=== PATIENT | female | born 1980 | race Caucasian/White ===

== ENCOUNTER 2017-09-22 14:43 | Emergency (ER) | payer OTHER ==
[~2017-09-22] VITALS: Ht 154.9 cm; Wt 74.0 kg
[2017-09-22 14:57] VITALS: TEMP 37; Ht 154.9 cm; Wt 74.0 kg
[2017-09-22] MEDS ORDERED: ACETAMINOPHEN 500 MG TAB PO STA (15:11)
[2017-09-22] MEDS ORDERED: LIDOCAINE/EPINEPH/TETRACAINE 1 EA SYR EXT STA (15:11)
[2017-09-22] MEDS ORDERED: DIPHTHERIA/TETANUS/PERTUSSIS 0.5 ML SYR/VIAL IM. ONE (15:15)
--- NOTE | 2017-09-22 15:30 | EMERGENCY ROOM VISIT NOTE ---
ED Visit Note First contact with patient: 15:00 CHIEF COMPLAINT: Head injury with laceration HISTORY OF PRESENTING ILLNESS: This is a 37-year-old female who presents the emergency department complaint of head injury and facial laceration. Patient reports that she was roller skating, she tripped and fell head first, injuring her right hand/wrist and hitting her head on the floor at approximately 2:30 PM today. She denies loss of consciousness, but does have a mild headache. She states that there is a laceration above her right eyebrow that is painful, she describes pain as constant, sharp and throbbing, 6/10. She does not take any medications prior to arrival. She denies any vision changes, nausea or vomiting , neck pain, back pain, chest pain, abdominal pain shortness of breath, dizziness or syncope, or any other associated injuries. She is right-hand dominant. She is unsure of her last tetanus, but thinks it may have been more than 10 years. She does take a baby aspirin daily, no other blood thinners. REVIEW OF SYSTEMS: A complete 10 point review of systems was reviewed with the patient with pertinent positives and negatives as per history of present illness. All else were negative. PAST MEDICAL HISTORY: Depression/anxiety, asthma, GERD SOCIAL HISTORY: Lives at home. She denies tobacco, alcohol, recreational drug use. ALLERGIES: Reviewed in chart. PHYSICAL EXAM: CONSTITUTIONAL: Pleasant and cooperative. No acute distress. Well appearing and well nourished. HEENT: Normocephalic. There is a 3 cm laceration on the right lateral forehead adjacent to the lateral eye and eyebrow, full-thickness. Minimal bleeding noted. PERRL, EOMI, though she does note some pain with lateral movement of the right eye. No nystagmus. TMs normal with no hemotympanum. Pharynx normal. Moist mucous membranes. NECK: Supple, full active range of motion without discomfort. No midline tenderness of the cervical spine. No cervical adenopathy. RESPIRATORY: Clear to auscultation bilaterally with no wheezing, crackles, rhonchi or stridor. Equal expansion bilaterally. CARDIOVASCULAR: Regular rate and rhythm with no murmurs, rubs or gallops. Normal peripheral perfusion. No edema. GASTROINTESTINAL: Soft, nontender, nondistended. No palpable masses or HSM. Bowel sounds present in all quadrants. MUSCULOSKELETAL: Tenderness to palpation of the right dorsal medial wrist and fifth metacarpal, no swelling. Extension and flexion of the wrist intact against resistance. Able to give a thumbs up, okay sign, and approximate all fingers to thumb without difficulty. Sensation intact distally. Brisk cap refill.. Full range of motion of all other joints without discomfort. INTEGUMENTARY: No rash or other significant dermatologic conditions noted. NEUROLOGIC: Alert and oriented X 4 with normal affect. Cranial nerves II-XII grossly intact, no facial droop. No pronator drift. No focal neurologic deficits noted. Normal strength and sensation in all 4 extremities. Normal speech. Normal gait observed. Ylsfym-djld-[id number] testing normal bilaterally. Negative Romberg. ED COURSE AND MEDICAL DECISION MAKING: CC: Patient presenting with complaint of head injury, facial laceration DIFFERENTIAL DIAGNOSIS: Includes, but not limited to laceration, contusion, hematoma, abrasion, concussion, orbital wall fracture, skull fracture, intracranial hemorrhage, hand/wrist sprain, fracture, contusion, among others. IMAGING: R HAND MIN 3 VIEWS ROUTINE, R WRIST MIN 3 VIEWS ROUTINE CLINICAL HISTORY: 37 years-old Female presenting with fall onto hand/wrist, eval fx. TECHNIQUE: Frontal, oblique, and lateral views of the right hand as well as frontal, bilateral oblique, and lateral views of the right wrist were obtained. COMPARISON: None. FINDINGS: Right hand: No acute fracture or malalignment. No advanced degenerative change. No radiographic soft tissue abnormality. Right wrist: No acute fracture or malalignment. No advanced degenerative change. No radiographic soft tissue abnormality. IMPRESSION: No acute osseous injury of the right hand or wrist. ----- HEAD WITHOUT CONTRAST (CT) CLINICAL HISTORY: 37 years-old Female presenting with fall, hit head, right eyebrow lac, eval trauma. TECHNIQUE: Multidetector CT imaging of the head was performed without the use of intravenous contrast. Acute appearing as is the sphenoid sinus filling defect in the glenohumeral IV contrast: None. A dose lowering technique was used consistent with the principles of ALARA (as low as reasonably achievable). COMPARISON: None. CT DOSE (mGy.cm): The estimated cumulative dose is 734.10. FINDINGS: Engineering Illustrator topogram: Unremarkable. Ventricles and sulci normal in size. Brain parenchyma normal in appearance with preserved chandra-white differentiation. No mass effect or midline shift. No hemorrhage or acute territorial infarct. No extra-axial fluid collection. Paranasal sinuses and mastoid air cells clear. Calvarium intact. IMPRESSION: 1. No acute intracranial abnormality. ----- FACIAL BONES-MXILLOFAC WITHOUT CLINICAL HISTORY: 37 years-old Female presenting with fall, hit head, right eyebrow lac, eval trauma, orbital fx. TECHNIQUE: Multidetector CT of the face was performed without the use of intravenous contrast. IV contrast: None. A dose lowering technique was used consistent with the principles of ALARA (as low as reasonably achievable). COMPARISON: None. CT DOSE (mGy.cm): The estimated cumulative dose is 734.10 mGy.cm. FINDINGS: Engineering Illustrator topogram: Unremarkable. Paranasal sinuses and mastoid air cells clear. No acute fracture. Temporal mandibular joints and mandible intact. Absence of the right mandibular second molar and several additional teeth. Bony nasal septum midline. No nasal bone fracture. Orbits normal. Evaluation of the superficial soft tissues of the face demonstrates minimal infiltration along the lateral aspect of the right periorbital soft tissues consistent with the given history. Upper cervical spine normal. IMPRESSION: No acute osseous injury of the face. Minimal infiltration of the lateral right periorbital soft tissue consistent with contusion. MEDICATION RECONCILIATION: I attest that I have personally reviewed the patient 's current medication list. INITIAL VITAL SIGNS REVIEW: I reviewed the patient's initial vital signs and interpret them as follows: T: Afebrile; BP: Hypertensive; HR: Within normal limits; RR: Within normal limits; Pulse Ox: Within normal limits on room air. Blood pressure screening: The patient was found to have an elevated blood pressure[],which was felt to be situational []and was referred to their primary doctor for recheck and further treatment. PROCEDURE NOTE: Laceration Repair Verbal consent was obtained from the patient. After achieving appropriate anesthesia with LET gel, the laceration site was cleansed with Betadine and saline. The wound was further explored and noted to have a laceration extending through the periosteum with exposed skull. This was closed with 2 single interrupted 6-0 Vicryl sutures. The remainder of the laceration was then closed with subcuticular sutures of 6-0 Vicryl, with good approximation of the wound edges. The wound was then closed with 3 layers of Dermabond. Good wound closure and approximation achieved, bleeding controlled. Patient tolerated the procedure well. Neurovascularly intact postprocedure. Occlusive dressing placed. SUMMARY: Patient was evaluated at bedside, history and physical exam performed. Patient is alert and oriented, in no acute distress, resting, and stretcher. Neurologic exam is intact with no focal deficits. Extraocular movements are intact, but the patient complains of some mild pain with lateral movement of the right eye. Laceration noted as above, minimal bleeding. Tender to palpation, no bony crepitus or depression to suggest a skull fracture. LET gel applied to the wound for anesthesia. Orders were placed at bedside for tetanus shot, Tylenol for headache, x-ray of right hand and wrist, CT head and facial bones to evaluate for trauma. Patient discussed with Dr. Steve, who agrees with my assessment and plan. Imaging reviewed as above, no acute traumatic injuries noted. Laceration repair as per procedure note above. Patient reassessed multiple times throughout ED stay, she reports that her headache is improved after the Tylenol. Patient was placed in a wrist lacer splint for possible wrist sprain, and encouraged to follow-up with her PCP or orthopedic surgery of her symptoms do not improve. Patient was updated on all results and plan for discharge, she was encouraged to follow closely with her PCP. Patient was educated regarding wound care and was also given strict return precautions should her symptoms worsen, she verbalized understanding. Patient was discharged home in stable condition and ambulatory. Current/Historical Medications Scheduled Aspirin (Aspirin Ec), 81 MG PO DAILY Buspirone Hcl (Buspirone Hcl), 15 MG BID Cephalexin Monohydrate (Keflex), 500 MG PO TID Cholecalciferol (Vitamin D), 2 TABS PO DAILY Cyanocobalamin (Vitamin B-12), 1,000 MCG PO DAILY Lamotrigine (Lamictal), 200 MG PO HS Magnesium Oxide (Mag-Ox), 400 MG PO HS Melatonin-Pyridoxine (Melatonin), 10 MG PO HS Omeprazole (Prilosec), 20 MG PO DAILY Polyethylene Glycol 3350 (Miralax), 17 GM PO BID Pregabalin (Lyrica), 150 MG PO BID Riboflavin (Vitamin B-2), 100 MG PO DAILY Saline (Saline Nasal [place]), 2 SPRAYS NA BID UD Topiramate (Topamax), 100 MG PO HS Topiramate (Topamax), 50 MG PO BID Triamcinolone Acetonide (Nasal (Nasacort Allergy 24Hr), 1 SPRAY DONALD BID Venlafaxine Hcl (Venlafaxine Hcl Er), 75 MG PO DAILYBB Venlafaxine Hcl (Venlafaxine Hcl Er), 1 TAB PO DAILY [Cardizem Ointment], 1 APPLN RE TID Scheduled PRN Albuterol Sulfate (Proventil Hfa), 2 PUFF INH Q4 PRN for SOB/Wheezing Dicyclomine Hcl (Bentyl), 10-20 MG PO Q6 PRN for Pain Ibuprofen (Motrin), 800 MG PO TID PRN for Pain Magnesium Citrate (Magnesium Citrate), 120 ML PO DAILY PRN for SEVERE CONSTIPATION Oxycodone/Acetaminophen 7.5MG/325MG (Percocet 7.5MG/325MG), 1 TAB PO Q8 PRN for Pain Tizanidine (Zanaflex), 4-8 MG PO HS PRN for Muscle Spasms Allergies Coded Allergies: Azithromycin (Verified Adverse Reaction, Severe, ABD PAIN, 09/22/17) Gabapentin (Verified Adverse Reaction, Severe, DISORIENTED, 09/22/17) Vital Signs Date Time Temp Pulse Resp B/P (MAP) Pulse Ox O2 Delivery O2 Flow Rate FiO2 09/22/17 17:45 87 18 130/87 98 Room Air 09/22/17 14:57 37.0 98 18 141/93 96 Room Air Medications Administered Medications (Trade) Dose Ordered Sig/Brittany Route Start Time Stop Time Status Last Admin Dose Admin Tetracaine/ Epinephrine/ Lidocaine (L.e.t. Gel 4%/ 1:100/0.5%) 1 ea UD STAT EXT 09/22/17 15:11 09/22/17 15:16 DC 09/22/17 15:38 1 EA Diphtheria/ Pertussis/Tetanus Vacc (Adacel Inj) 0.5 ml ONCE ONCE IM. 09/22/17 15:15 09/22/17 15:16 DC 09/22/17 15:39 0.5 ML Acetaminophen (Tylenol Tab) 1,000 mg NOW STAT PO 09/22/17 15:11 09/22/17 15:16 DC 09/22/17 15:38 1,000 MG Cephalexin Monohydrate (Keflex Cap) 500 mg NOW ONCE PO 09/22/17 17:45 09/22/17 17:46 DC 09/22/17 17:43 500 MG Cephalexin Monohydrate (Keflex 500MG Home Pack) 1 homepack NOW ONCE PO 09/22/17 17:45 09/22/17 17:46 DC 09/22/17 17:43 1 HOMEPACK Departure Information Impression Primary Impression: Closed head injury Additional Impressions: Laceration of eyebrow with complication Right wrist sprain Dispostion Home / Self-Care Condition GOOD Prescriptions Cephalexin Monohydrate (Keflex) 500 Mg Cap 500 MG PO TID for 4 Days, #12 CAP Prov: Heather Larson, DOUBLE CORNER CUTTER 09/22/17 Referrals No Doctor, Assigned (PCP) Anjum Talley, DO Patient Instructions ED Head Injury Closed, ED Laceration Facial Skin Glue, [facility] PillGuard Additional Instructions You were evaluated and treated in the emergency department for your head injury and facial laceration. You most likely have a mild concussion. It is important to observe both physical and cognitive rest while recovering from a concussion. Physical rest includes no significant physical activity or exertion, heavy lifting over 10 pounds, and increasing sleep and nap times throughout the day as needed. Cognitive rest includes taking breaks from prolonged screen time including TV, tablets, phone, or prolonged periods of talking on the telephone or reading. You should relax in a quiet, dark place for the rest of the day. Avoid any possible triggers including: cigarette smoke, caffeine, nicotine, chocolate, wine, beer, loud noises or music, or bright lights. For pain control, you can use the following caca-jak-uyqcgil medicines (if >12 yo): - Regular strength (325mg/tab) Tylenol (acetaminophen) 2 tabs every 4-6 hours as needed. Do not exceed 10 tablets in a 24 hour period. Avoid taking more than 3000 mg of Tylenol per day. This includes any other sources of acetaminophen you may take on a regular basis. - Regular strength (200 mg/tab) Advil (ibuprofen) 2 tabs every 4-6 hours as needed. Do not exceed a dose of 2400 mg per day. Your laceration was closed with dissolving stitches and covered with Dermabond skin glue. The glue should fall off on its own over the next 5-7 days. Do not pick at the glue, apply lotion, ointment, or soap to the glued area, to avoid premature disintegration of the glue. You may apply cold compresses to the area to help reduce pain and swelling. You can expect to develop some increased bruising around the eye over the next few days. As with all lacerations, there may be temporary or permanent nerve damage or scarring. Keep covered when in sun until sutures removed then SPF 50 or higher for one year. Vitamin E oil if desired two weeks after suture removal for reduction of scar. Please seek immediate medical attention for any signs of infection (increasing pain, redness, swelling, pus drainage, fever/chills). Wear the wrist splint for the next 4-5 days to rest the wrist and allow it to heal. Please follow up with the orthopedic surgeon in the next week if you are still having wrist pain. Follow-up with your PCP in the next few days to be rechecked. Please return to the ER for any worsening symptoms, including severe worsening headache, persistent vomiting, vision changes, confusion, numbness or weakness on one side of the body, balance issues or difficulty walking, or any other concerns. Work Instructions Return To Work: 1 day Problem Qualifiers Primary Impression: Closed head injury Encounter type: initial encounter Qualified Codes: S09.90XA - Unspecified injury of head, initial encounter Additional Impressions: Laceration of eyebrow with complication Encounter type: initial encounter Laterality: right Qualified Codes: S01.111A - Laceration without foreign body of right eyelid and periocular area, initial encounter Right wrist sprain Encounter type: initial encounter Qualified Codes: S63.501A - Unspecified sprain of right wrist, initial encounter
--- NOTE | 2017-09-22 15:57 | DIAGNOSTIC IMAGING REPORT ---
R HAND MIN 3 VIEWS ROUTINE, R WRIST MIN 3 VIEWS ROUTINE CLINICAL HISTORY: 37 years-old Female presenting with fall onto hand/wrist, eval fx. TECHNIQUE: Frontal, oblique, and lateral views of the right hand as well as frontal, bilateral oblique, and lateral views of the right wrist were obtained. COMPARISON: None. FINDINGS: Right hand: No acute fracture or malalignment. No advanced degenerative change. No radiographic soft tissue abnormality. Right wrist: No acute fracture or malalignment. No advanced degenerative change. No radiographic soft tissue abnormality. IMPRESSION: No acute osseous injury of the right hand or wrist. Electronically signed by: Jay Monreal M.D. 09/22/2017 3:56 PM Dictated Date/Time: 09/22/2017 3:55 PM
[2017-09-22] MEDS ORDERED: BUSP-8 (16:01)
[2017-09-22] MEDS ORDERED: TIZA4CAP PO (16:01)
[2017-09-22] MEDS ORDERED: MAGN1SOL7 PO (16:01)
[2017-09-22] MEDS ORDERED: MELA3TAB7 PO (16:01)
[2017-09-22] MEDS ORDERED: CARDIZEM RE (16:01)
[2017-09-22] MEDS ORDERED: MAGN400T6 PO (16:01)
[2017-09-22] MEDS ORDERED: CHOL20009 PO (16:01)
[2017-09-22] MEDS ORDERED: VENL-273 PO (16:01)
[2017-09-22] MEDS ORDERED: CYAN10005 PO (16:01)
[2017-09-22] MEDS ORDERED: TRIA1SPR4 NAE (16:01)
[2017-09-22] MEDS ORDERED: PREG1CAP70 PO (16:01)
[2017-09-22] MEDS ORDERED: SALI1SPR3 (16:01)
[2017-09-22] MEDS ORDERED: TOPI100T20 PO (16:01)
[2017-09-22] MEDS ORDERED: IBUP-1428 PO (16:01)
[2017-09-22] MEDS ORDERED: TOPI50TA16 PO (16:01)
[2017-09-22] MEDS ORDERED: LAMO200T35 PO (16:01)
[2017-09-22] MEDS ORDERED: DICY10CA55 PO (16:01)
[2017-09-22] MEDS ORDERED: POLY335019 PO (16:01)
[2017-09-22] MEDS ORDERED: ASPI81TA28 PO (16:01)
[2017-09-22] MEDS ORDERED: OXYC7.5T65 PO (16:01)
[2017-09-22] MEDS ORDERED: RIBO100T9 PO (16:01)
[2017-09-22] MEDS ORDERED: ALBUAER INH (16:01)
[2017-09-22] MEDS ORDERED: PRLSR20 PO (16:01)
[2017-09-22] MEDS ORDERED: VENL150T33 PO (16:01)
--- NOTE | 2017-09-22 16:09 | DIAGNOSTIC IMAGING REPORT ---
HEAD WITHOUT CONTRAST (CT) CLINICAL HISTORY: 37 years-old Female presenting with fall, hit head, right eyebrow lac, eval trauma. TECHNIQUE: Multidetector CT imaging of the head was performed without the use of intravenous contrast. Acute appearing as is the sphenoid sinus filling defect in the glenohumeral IV contrast: None. A dose lowering technique was used consistent with the principles of ALARA (as low as reasonably achievable). COMPARISON: None. CT DOSE (mGy.cm): The estimated cumulative dose is 734.10. FINDINGS: Wood Heel Flap Inserter topogram: Unremarkable. Ventricles and sulci normal in size. Brain parenchyma normal in appearance with preserved chandra-white differentiation. No mass effect or midline shift. No hemorrhage or acute territorial infarct. No extra-axial fluid collection. Paranasal sinuses and mastoid air cells clear. Calvarium intact. IMPRESSION: 1. No acute intracranial abnormality. That this study Electronically signed by: Jay Monreal M.D. 09/22/2017 4:07 PM Dictated Date/Time: 09/22/2017 4:04 PM
--- NOTE | 2017-09-22 16:11 | DIAGNOSTIC IMAGING REPORT ---
FACIAL BONES-MXILLOFAC WITHOUT CLINICAL HISTORY: 37 years-old Female presenting with fall, hit head, right eyebrow lac, eval trauma, orbital fx. TECHNIQUE: Multidetector CT of the face was performed without the use of intravenous contrast. IV contrast: None. A dose lowering technique was used consistent with the principles of ALARA (as low as reasonably achievable). COMPARISON: None. CT DOSE (mGy.cm): The estimated cumulative dose is 734.10 mGy.cm. FINDINGS: Tube Bending Machine Operator topogram: Unremarkable. Paranasal sinuses and mastoid air cells clear. No acute fracture. Temporal mandibular joints and mandible intact. Absence of the right mandibular second molar and several additional teeth. Bony nasal septum midline. No nasal bone fracture. Orbits normal. Evaluation of the superficial soft tissues of the face demonstrates minimal infiltration along the lateral aspect of the right periorbital soft tissues consistent with the given history. Upper cervical spine normal. IMPRESSION: No acute osseous injury of the face. Minimal infiltration of the lateral right periorbital soft tissue consistent with contusion. Electronically signed by: Jay Monreal M.D. 09/22/2017 4:10 PM Dictated Date/Time: 09/22/2017 4:07 PM
[2017-09-22] MEDS ORDERED: CEPH500C PO (17:37)
[2017-09-22 17:45] VITALS: BP 130/87; PULSE 87; O2SAT 98
[2017-09-22] MEDS ORDERED: CEPHALEXIN MONOHYDRATE 250 MG CAP PO ONE (17:45)
[2017-09-22] MEDS ORDERED: CEPHALEXIN 500MG HOME PACK 1 EA BTL PO ONE (17:45)
== END 2017-09-22 17:53 | disposition home or self-care (01) ==
LOC: C.EDB 14:45 → C.EDD 17:53
DX: S09.90XA Unspecified injury of head, initial encounter (principal); S01.111A Laceration without foreign body of right eyelid and periocular area, initial encounter; S63.501A Unspecified sprain of right wrist, initial encounter; Y93.51 Activity, roller skating (inline) and skateboarding; W18.09XA Striking against other object with subsequent fall, initial encounter; Z79.82 Long term (current) use of aspirin; F32.9 Major depressive disorder, single episode, unspecified; F41.9 Anxiety disorder, unspecified; J45.909 Unspecified asthma, uncomplicated; K21.9 Gastro-esophageal reflux disease without esophagitis; Z23 Encounter for immunization

== ENCOUNTER → 2018-02-14 | Outpatient (CLI) | payer OTHER ==
[~2018-02-14] MED LIST: ALBUAER INH; ASPI81TA28 PO; BUSP-8; CARDIZEM RE; CHOL20009 PO; CYAN10005 PO; DICY10CA55 PO; IBUP-1428 PO; LAMO200T35 PO; MAGN1SOL7 PO; MAGN400T6 PO; MELA3TAB7 PO; OXYC7.5T65 PO; POLY335019 PO; PREG1CAP70 PO; PRLSR20 PO; RIBO100T9 PO; SALI-3; TIZA4CAP PO; TOPI100T20 PO; TOPI50TA16 PO; TRIA1SPR4 NAE; VENL-273 PO; VENL150T33 PO
--- NOTE | 2018-02-14 13:14 | DIAGNOSTIC IMAGING REPORT ---
VIDEO SWALLOW HISTORY: DYSPHAGIA, NEGATIVE EGD TECHNIQUE: Video fluoroscopic evaluation of swallowing was performed in the AP and lateral projections by the speech pathology staff. The patient is fed nectar-thick and thin liquid barium, a barium coated wafer, and barium pudding. FLUOROSCOPY TIME: 1.5 minutes. A cine loop submitted. COMPARISON STUDY: None. FINDINGS: There is normal hyoid excursion and epiglottic deflection. No significant penetration or aspiration identified. Swallowing function is within normal limits. Tiny focus of contrast persists on a few of the sequences at the level of the cricopharyngeus. This could represent a tiny Zenker's diverticulum or a small amount of residue. IMPRESSION: 1. No aspiration identified. 2. Tiny focus of contrast persists on a few of the sequences at the level of the cricopharyngeus. This could represent a tiny Zenker's diverticulum or a small amount of residue. 3. Please see the speech pathologist report for detailed findings and recommendations. Electronically signed by: Umesh Alvarado M.D. 02/14/2018 1:13 PM Dictated Date/Time: 02/14/2018 1:10 PM
--- NOTE | 2018-02-14 13:55 | SWALLOWING EVALUATION ---
HISTORY: This 37 year old woman was referred for a video swallow study at [facility] in order to rule out aspiration and identify the safest consistencies for optimal oral intake. The patient is reporting food becoming "stuck" in her throat, specific to meats, and discomfort and/or burning in the mid-sternum area with meals. PMH is significant for depression, anxiety, GERD, asthma, and a CHI/concussion. Current diet is regular, gluten free. PROCEDURE: The patient was seen in the Radiology Department of [facility] for the VFSS. Cursory examination of the oral cavity revealed the patient to have natural upper and lower dentition in good condition. Strength and ROM of the articulators was wnl. The patient was seated upright on a stool and was viewed in the Lateral and the Anterior-Posterior (A-P) planes. Volitional phonation exercises completed in the A-P plane revealed bilateral vocal fold movement. Vocal intensity was wnl. In the lateral plane, the patient was given the following boluses: 1 tsp. thin liquid barium x 2, single swallow thin liquid barium self-presented from a cup x2, serial swallows of thin liquid barium self-presented via straw, 1 tsp. nectar-thick liquid barium, single swallow nectar-thick liquid barium self-presented from a cup, and 1 tsp. barium pudding. A club cracker coated in barium pudding (typically administered) was not provided for this study due to the patient's gluten intolerance. The patient was then repositioned into the A-P plane and given the following boluses: 1 tsp. nectar thick barium, and 1 tsp. barium pudding. RESULTS: Oral Stage: Lip closure was adequate. The patient was able to maintain a cohesive liquid bolus in the oral cavity during the liquid bolus hold task. Mastication was timely and efficient. Lingual motion for bolus transport was slowed. There was retention lining the tongue and palate after the initial swallow. The initiation of the pharyngeal swallow was delayed and occurred when the bolus head reached the valleculae. Piecemeal like deglutition was noted. Pharyngeal Stage: Soft palate elevation was complete. Laryngeal elevation revealed complete superior movement of the thyroid cartilage with complete approximation of the arytenoids to the epiglottic base. Anterior hyoid excursion and epiglottic deflection was complete. Laryngeal vestibular closure was complete. The pharyngeal stripping wave was present and complete. Pharyngeal contraction was complete. There was complete distention and duration of the opening to the pharyngoesophageal segment (PES). Tongue base retraction was partially reduced with a trace column of contrast located between the tongue base and pharyngeal wall during the swallow. There was trace retention located in the valleculae after the swallow. The pharyngeal stage of the swallow was wnl. There was no evidence of laryngeal penetration or aspiration. Esophageal stage: There was retention in the mid-distal esophagus with retrograde flow below the PES. With time, the bolus did slowly transit the esophagus. A liquid wash did not assist to clear this. All of the above are suggestive of esophageal dysmotility and reflux. In the lateral view, a small amount of contrast remained in the mid esophagus which could be suggestive of a possible Zenker's Diverticulum. This was not present in the A-P view. SUMMARY/RECOMMENDATIONS: This patient presents with normal oropharyngeal swallowing mechanics. She presents with s/s of esophageal dysfunction. The following is recommended: 1. Regular diet, SLIPPERY. Avoid foods that are dry, thick, pasty, and doughy. 2. Aspiration and GERD precautions: FULLY UPRIGHT for meals and for 30 minutes after meals; head of bed at least 30-degrees at all times. No straws. 3. Safe swallow strategies: Rest breaks during meals. Small frequent meals. 4. Follow up with GI for management for esophageal dysfunction (medication adjustments, further testing as needed) as appropriate. A summary of the results and recommendations was discussed with the patient immediately following the study with verbal understanding. Both verbal and written education was provided to the patient regarding components of a "slippery" diet with verbal understanding. Thank you for referral of this patient. Please contact me at if any additional information is needed.
== END | disposition home or self-care (01) ==
LOC: C.RAD 11:20
PROVIDERS: ATTEND Nurse Practitioner Family
DX: R13.10 Dysphagia, unspecified (principal)